=== PATIENT | male | born 1985 | race Caucasian/White ===

== ENCOUNTER 2024-12-10 22:53 | Emergency (ER) | payer OTHER ==
[2024-12-11] MEDS ORDERED: HYDROmorphone 1 MG/ML 1 ML SYRINGE IM STA (00:15)
--- NOTE | 2024-12-11 00:17 | ED ---
Male Urogenital HPI <Javy Garcia - Last Filed: 12/12/24 20:15> - General Source: patient, RN notes reviewed, old records reviewed Mode of arrival: ambulatory Limitations: no limitations - History of Present Illness MD Complaint: penile discharge, dysuria, other (penile pain) Location: penis Radiation: none Severity: severe Severity scale (1-10): 10 Quality: sharp Consistency: constant Improves with: none trauma, new sexual partner Reports: discharge, swelling <Javy Be - Last Filed: 12/22/24 18:16> - General Chief complaint: Urogenital Stated complaint: penis bleeding Time Seen by Provider: 12/10/24 23:27 - History of Present Illness Initial comments: This is a 39-year-old male to the ER for evaluation of significant pain penile pain tenderness excoriations redness swelling significant pain for 2 to 3 days with worsening pain today. Patient is in severe pain here in the ER with no dysuria or other complaints (Javy Be) - Related Data Previous Rx's Medication Instructions Recorded Amoxic-Pot Clav 875-125Mg 1 tab PO BID 10 Days #20 tab 12/12/24 [Augmentin 875-125] Ibuprofen [Motrin] 800 mg PO Q8H PRN #30 tab 12/16/24 Allergies Allergy/AdvReac Type Severity Reaction Status Date / Time cephalexin [From Keflex] Allergy Rash/Hives Verified 12/16/24 10:42 sulfamethoxazole Allergy Rash/Hives Verified 12/16/24 10:42 [From Bactrim] trimethoprim [From Bactrim] Allergy Rash/Hives Verified 12/16/24 10:42 Review of Systems ROS Other: All systems not noted in ROS Statement are negative. <Javy Garcia - Last Filed: 12/12/24 20:15> ROS Other: All systems not noted in ROS Statement are negative. <Javy Be - Last Filed: 12/22/24 18:16> ROS Statement: Those systems with pertinent positive or pertinent negative responses have been documented in the HPI. Past Medical History Past Medical History: Thyroid Disorder Additional Past Medical History / Comment(s): hernia, kidney stones History of Any Multi-Drug Resistant Organisms: MRSA MDRO Source:: nose 2004 Past Surgical History: Appendectomy, Hernia Repair Past Psychological History: No Psychological Hx Reported Smoking Status: Current every day smoker Past Alcohol Use History: None Reported Past Drug Use History: None Reported <Javy Be - Last Filed: 12/22/24 18:16> General Exam Limitations: no limitations General appearance: alert, in no apparent distress Head exam: Present: atraumatic, normocephalic, normal inspection Eye exam: Present: normal appearance, PERRL, EOMI. Absent: scleral icterus, conjunctival injection, periorbital swelling ENT exam: Present: normal exam, mucous membranes moist Neck exam: Present: normal inspection. Absent: tenderness, meningismus, lymphadenopathy Respiratory exam: Present: normal lung sounds bilaterally. Absent: respiratory distress, wheezes, rales, rhonchi, stridor Cardiovascular Exam: Present: regular rate, normal rhythm, normal heart sounds. Absent: systolic murmur, diastolic murmur, rubs, gallop, clicks GI/Abdominal exam: Present: soft, normal bowel sounds. Absent: distended, tenderness, guarding, rebound, rigid Extremities exam: Present: normal inspection, full ROM, normal capillary refill. Absent: tenderness, pedal edema, joint swelling, calf tenderness Back exam: Present: normal inspection Neurological exam: Present: alert, oriented X3, CN II-XII intact Psychiatric exam: Present: normal affect, normal mood Skin exam: Present: warm, dry, intact, normal color. Absent: rash <Javy Be - Last Filed: 12/22/24 18:16> - General Exam Comments Initial Comments: Free and excoriations to the glans and shaft of penis, mild swelling no significant bleeding no ulcers noted, severe pain to touch (Javy Be) Course <Javy Be - Last Filed: 12/22/24 18:16> Vital Signs 12/10/24 12/11/24 22:55 00:45 Temperature 98.3 F 98.9 F Pulse Rate 88 78 Respiratory 20 18 Rate Blood Pressure 145/82 136/78 O2 Sat by Pulse 98 99 Oximetry - Reevaluation(s) Reevaluation #1: 12/11/24 00:19 Medical records reviewed (Javy Be) Reevaluation #2: 12/11/24 00:19 Patient symptoms are improved (Javy Be) Reevaluation #3: 12/11/24 00:19 Patient informed of results questions answered (Javy Be) Reevaluation #4: Was pt. sent in by a medical professional or institution (JASVIR Cook, W[employer], urgent care, hospital, or alf...) When possible be specific @ -no Did you speak to anyone other than the patient for history (EMS, parent, family, police, friend...)? What history was obtained from this source @ -no Did you review nursing and triage notes (agree or disagree)? Why? @ -agree Are old charts reviewed (outside hosp., previous admission, EMS record, old EKG, old radiological studies, urgent care reports/EKG's, alf records)? Report findings @ -yes Differential Diagnosis (chest pain, altered mental status, abdominal pain women, abdominal pain men, vaginal bleeding, weakness, fever, dyspnea, syncope, headache, dizziness, GI bleed, back pain, seizure, CVA, palpatations, mental health, musculoskeletal)? @ -prior EKG interpreted by me (3pts min.). @ -no X-rays interpreted by me (1pt min.). @ -no CT interpreted by me (1pt min.). @ -no U/S interpreted by me (1pt. min.). @ -no What testing was considered but not performed or refused? (CT, X-rays, U/S, labs)? Why? @ -none What meds were considered but not given or refused? Why? @ -none Did you discuss the management of the patient with other professionals (corbin crowley i.e. JASVIR Cook, WALL MAN, lab, RT, psych nurse, social sciences instructor, civil engineer in training, teacher, credit risk officer, mattress spring encaser)? Give summary @ -no Was smoking cessation discussed for >3mins.? @ -no Was critical care preformed (if so, how long)? @ -no Were there social determinants of health that impacted care today? How? (Homelessness, low income, unemployed, alcoholism, drug addiction, transportation, low edu. Level, literacy, decrease access to med. care, prison, rehab)? @ -none Was there de-escalation of care discussed even if they declined (Discuss DNR or withdrawal of care, Hospice)? DNR status @ -no What co-morbidities impacted this encounter? (DM, HTN, Smoking, COPD, CAD, Cancer, CVA, ARF, Chemo, Hep., AIDS, mental health diagnosis, sleep apnea, morbid obesity)? @ -none Was patient admitted / discharged? Hospital course, mention meds given and route, prescriptions, significant lab abnormalities, going to OR and other pertinent info. @ - 39 male to ER for evaluation of significant penile pain. Patient does have evidence of glans and shaft cellulitis of the penis with excoriations. Patient will be placed on antibiotics and pain control pending cultures Discharged Undiagnosed new problem with uncertain prognosis? @ -no Drug Therapy requiring intensive monitoring for toxicity (Heparin, Nitro, Insulin, Cardizem)? @ -no Were any procedures done? @ -no Diagnosis/symptom? @ -penile pain, excoriations, cellulitis Acute, or Chronic, or Acute on Chronic? @ -Acute Uncomplicated (without systemic symptoms) or Complicated (systemic symptoms)? @ -Complicated Side effects of treatment? @ -no Exacerbation, Progression, or Severe Exacerbation? @ -exacerbation Poses a threat to life or bodily function? How? (Chest pain, [place], [place], pneumonia, PE, COPD, DKA, ARF, appy, cholecystitis, CVA, Diverticulitis, Homicidal, Suicidal, threat to staff... and all critical care pts) @ no (Javy Be) Medical Decision Making <Javy Be - Last Filed: 12/22/24 18:16> - Medical Decision Making 39 male to ER for evaluation of significant penile pain. Patient does have evidence of glans and shaft cellulitis of the penis with excoriations. Patient will be placed on antibiotics and pain control pending cultures (Javy Be) Disposition <Javy Garcia - Last Filed: 12/12/24 20:15> Is patient prescribed a controlled substance at d/c from ED?: No Time of Disposition: 00:20 <Javy Be - Last Filed: 12/22/24 18:16> Clinical Impression: Balanitis, Penile cellulitis Disposition: HOME SELF-CARE Condition: Good Instructions (If sedation given, give patient instructions): Urinary Tract Infection in Men (ED), Cellulitis (ED), Balanitis (ED) Prescriptions: Amoxic-Pot Clav 875-125Mg [Augmentin 875-125] 1 tab PO BID 10 Days #20 tab Referrals: None,Stated [Primary Care Provider] - 1-2 days
[2024-12-11] MEDS: AZITHROMYCIN 500 MG TAB PO STA ×2 (00:41→00:42)
[2024-12-11] MEDS: MUPIROCIN 2% OINT 22 GM TUBE TOPICAL STA (00:41)
[2024-12-11] MEDS: AMOXIC-POT CLAV 875-125MG 1 EACH TAB PO STA (00:41)
[2024-12-11] MEDS: traMADol 50 MG TAB PO STA (00:43)
[2024-12-11 00:56] VITALS: BP 136/78; PULSE 78; RESP 18; TEMP 98.9
== END 2024-12-11 00:45 | disposition home or self-care (01) ==
LOC: EC 22:53
DX: N48.1 Balanitis (principal); F17.200 Nicotine dependence, unspecified, uncomplicated; Z88.2 Allergy status to sulfonamides; Z88.1 Allergy status to other antibiotic agents
CPT/HCPCS: 99283

== ENCOUNTER 2024-12-16 10:38 | Emergency (ER) | payer SELFPAY ==
[2024-12-16] MEDS: IBUPROFEN 800 MG TAB PO STA (10:52)
[2024-12-16] MEDS: HYDROcodone/APAP 7.5-325MG 1 EACH TAB PO ONE (10:52)
--- NOTE | 2024-12-16 11:11 | XR ---
EXAMINATION TYPE: XR finger LT DATE OF EXAM: 12/16/2024 11:00 AM COMPARISON: None. CLINICAL INDICATION: Male, 39 years old with history of Left 5th finger injury, pain TECHNIQUE: 3 view(s) obtained. FINDINGS: Fracture at the tuft of the fifth digit. Mild soft tissue swelling may be present. Joint spaces are preserved. No acute fracture or dislocation is evident. Follow up exams can be perfo rmed as clinically indicated. IMPRESSION: 1. Oblique fracture distal tuft of left fifth digit [facility], , 12/16/2024 11:08 AM
--- NOTE | 2024-12-16 11:14 | ED ---
Upper Extremity HPI - General Chief Complaint: Extremity Injury, Upper Stated Complaint: L Hand Injury Time Seen by Provider: 12/16/24 10:43 Source: patient, RN notes reviewed Mode of arrival: ambulatory Limitations: no limitations - History of Present Illness Initial Comments: This is a 39-year-old male who presents to the emergency department for a left fifth finger injury. Patient states that he got it pinched in a tool last night and he has since had a lot of pain and swelling and feels like there is a lot of pressure building up. MD Complaint: Injury to:: left, finger - Related Data Previous Rx's Medication Instructions Recorded Amoxic-Pot Clav 875-125Mg 1 tab PO BID 10 Days #20 tab 12/12/24 [Augmentin 875-125] Ibuprofen [Motrin] 800 mg PO Q8H PRN #30 tab 12/16/24 Allergies Allergy/AdvReac Type Severity Reaction Status Date / Time cephalexin [From Keflex] Allergy Rash/Hives Verified 12/16/24 10:42 sulfamethoxazole Allergy Rash/Hives Verified 12/16/24 10:42 [From Bactrim] trimethoprim [From Bactrim] Allergy Rash/Hives Verified 12/16/24 10:42 Review of Systems ROS Statement: Those systems with pertinent positive or pertinent negative responses have been documented in the HPI. ROS Other: All systems not noted in ROS Statement are negative. Past Medical History Past Medical History: Thyroid Disorder Additional Past Medical History / Comment(s): hernia, kidney stones History of Any Multi-Drug Resistant Organisms: MRSA MDRO Source:: nose 2004 Past Surgical History: Appendectomy, Hernia Repair Past Psychological History: No Psychological Hx Reported Smoking Status: Current every day smoker Past Alcohol Use History: None Reported Past Drug Use History: None Reported General Exam Limitations: no limitations General appearance: alert, in no apparent distress Head exam: Present: atraumatic, normocephalic, normal inspection Respiratory exam: Present: normal lung sounds bilaterally. Absent: respiratory distress, wheezes, rales, rhonchi, stridor Cardiovascular Exam: Present: regular rate, normal rhythm Extremities exam: Present: other (Subungual hematoma to the left fifth finger with pain and swelling to the finger pad as well) Neurological exam: Present: alert, oriented X3, CN II-XII intact Psychiatric exam: Present: normal affect, normal mood Course Vital Signs 12/16/24 12/16/24 10:39 12:15 Temperature 98 F 98.1 F Pulse Rate 89 86 Respiratory 18 20 Rate Blood Pressure 125/86 146/78 O2 Sat by Pulse 98 99 Oximetry Medical Decision Making - Medical Decision Making This is a 39-year-old male who presents to the emergency department for a left fifth finger injury. Was pt. sent in by a medical professional or institution? @ -No Did you speak to anyone other than the patient for history? @ -No Did you review nursing and triage notes? @ -Yes, and I agree, it is accurate with regards to the patient's symptoms. Were old charts reviewed? @ -No Differential Diagnosis? @ -Differential Musculoskeletal Muscular strain, contusion, ligament sprain, fracture, arthritis, septic arthritis, bursitis, cellulitis, muscle spasm, nerve compression, DVT, arterial occlusion, herpes zoster, electrolyte abnormality, tumor.... This is not meant to be in all inclusive list EKG interpreted by me (3pts min.)? @ -Not obtained X-rays interpreted by me (1pt min.)? @ -X-ray of the left fifth finger obtained. My interpretation identifies a tuft fracture. CT interpreted by me (1pt min.)? @ -Not obtained U/S interpreted by me (1pt. min.)? @ -Not obtained What testing was considered but not performed? (CT, X-rays, U/S, labs)? Why? @ -None What meds were considered but not given? Why? @ -None Did you discuss the management of the patient with other professionals? @ -No Did you reconcile home meds? @ -No Was smoking cessation discussed for >3mins.? @ -No Was critical care preformed (if so, how long)? @ -No Were there social determinants of health that impacted care today? How? (Homelessness, low income, unemployed, alcoholism, drug addiction, [employer] sportation, low edu. Level, literacy, decrease access to med. care, fdc, rehab)? @ -No Was there de-escalation of care discussed even if they declined? (Discuss DNR or withdrawal of care, Hospice)? @ -No What co-morbidities impacted this encounter? (DM, HTN, Smoking, COPD, CAD, Cancer, CVA, Hep., AIDS, mental health diagnosis, sleep apnea, morbid obesity)? @ -None Was patient admitted / discharged? @ -Discharged. X-ray of the left fifth finger demonstrates an oblique fracture of the distal tuft. He did also have a subungual hematoma treated with cautery. He had significant improvement in pain and pressure afterwards. His finger was bandaged and put in a splint. He was given information for follow-up with orthopedics. Ibuprofen prescribed for pain control. Patient discharged home in stable condition. Case discussed with ED attending Dr. España. Return precautions reviewed in depth, the patient is instructed to return to the emergency department with any new, worsening, or concerning symptoms. Patient verbalized understanding. Undiagnosed new problem with uncertain prognosis? @ -None Drug Therapy requiring intensive monitoring for toxicity (Heparin, Nitro, Insulin, Cardizem)? @ -None Were any procedures done? @ -None Diagnosis/symptom? @ -Tuft fracture of left fifth finger, subungual hematoma Acute, or Chronic, or Acute on Chronic? @ -Acute Uncomplicated (without systemic symptoms) or Complicated (systemic symptoms)? @ -Uncomplicated Side effects of treatment? @ -None Exacerbation, Progression, or Severe Exacerbation] @ -Not applicable Poses a threat to life or bodily function? @ -No - Radiology Data Radiology results: report reviewed, image reviewed Disposition Clinical Impression: Closed fracture of tuft of distal phalanx of left little finger, Subungual hematoma of finger of left hand Disposition: HOME SELF-CARE Instructions (If sedation given, give patient instructions): Subungual Hematoma (ED), Finger Fracture (ED) Additional Instructions: Return to the emergency department with any new, worsening, or concerning symptoms. Alternate with ibuprofen and Tylenol as needed for pain relief. Apply ice and contact the orthopedic office listed below first thing tomorrow morning for a follow-up appointment. Prescriptions: Ibuprofen [Motrin] 800 mg PO Q8H PRN #30 tab PRN Reason: Pain Is patient prescribed a controlled substance at d/c from ED?: No Referrals: Nonstaff,Physician [Primary Care Provider] - 1-2 days Taye Gutiérrez DO [Doctor of Osteopathic Medicine] - 1-2 days Time of Disposition: 11:43
[2024-12-16 12:16] VITALS: BP 146/78; PULSE 86; RESP 20; TEMP 98.1
== END 2024-12-16 12:16 | disposition home or self-care (01) ==
LOC: EC 10:38
DX: S62.637A Displaced fracture of distal phalanx of left little finger, initial encounter for closed fracture (principal); F17.200 Nicotine dependence, unspecified, uncomplicated; Z88.2 Allergy status to sulfonamides; Z88.1 Allergy status to other antibiotic agents; W23.2XXA Caught, crushed, jammed or pinched between a moving and stationary object, initial encounter
CPT/HCPCS: 99283